=== PATIENT | female | born 1935 | race Caucasian/White ===

== ENCOUNTER 2017-12-11 11:15 | Inpatient (IN) | payer MEDICARE ==
--- NOTE | 2017-12-11 12:08 | CT Preliminary Report ---
Exam: CT HEAD W/O STROKE PROTOCOL IMPRESSION: 1. Focal hypodensity within the right posterior frontal subcortical white matter. This could be due t o acute edema from early infarct or asymmetric changes of chronic microangiopathic disease. The overl moises cortical dye-white differentiation appears to be preserved. 2. No intracranial hemorrhage or mass effect. [facility] The call report notification system was initiated by Dr. David Morris at 11:57 hrs on 12/11/17. The above findings were discussed with Gilles Leung by Dr. David Morris at 12:07 hrs on 12/11/17. SITE ID: [id number]
--- NOTE | 2017-12-11 12:09 | CT Report ---
EXAM: CT HEAD EXAM DATE: 12/11/2017 11:48 AM. CLINICAL HISTORY: Slurred speech and confused. COMPARISON: None. TECHNIQUE: Multiaxial CT images were obtained from the foramen magnum to the vertex. Reformats: Coron al. IV contrast: None. In accordance with CT protocol optimization, one or more of the following dose reduction techniques w ere utilized for this exam: automated exposure control, adjustment of mA and/or KV based on patient s ize, or use of iterative reconstructive technique. FINDINGS: Parenchyma: No intraparenchymal hemorrhage. No evidence of mass effect or midline shift. There is foc al hypodensity in the right posterior frontal subcortical white matter (series 3 image 20, and series 6 image 17). Bean-white differentiation is distinct. Diffuse chronic microangiopathic white matter c hanges are evident. Extraaxial Spaces: Normal for age. No subdural or epidural collections identified. Ventricles: The ventricles and cortical sulci are enlarged, consistent with age-related tissue loss. Sinuses and orbits: Imaged paranasal sinuses, orbits, and mastoids show no significant abnormality. Bones: No evidence of fracture or calvarial defect. Hyperostosis frontalis is present. Other: None. IMPRESSION: 1. Focal hypodensity within the right posterior frontal subcortical white matter. This could be due t o acute edema from early infarct or asymmetric changes of chronic microangiopathic disease. The overl moises cortical bean-white differentiation appears to be preserved. 2. No intracranial hemorrhage or mass effect. RAD[facility] The call report notification system was initiated by Dr. David Morris at 11:57 hrs on 12/11/17. The above findings were discussed with Gilles Leung by Dr. David Morris at 12:07 hrs on 12/11/17. Referring Provider Line: [phone] SITE ID: [id number]
[2017-12-11] MEDS ORDERED: ASPIRIN CHEW 81 MG TABLET PO STA (12:25)
[2017-12-11] MEDS ORDERED: ENOXAPARIN 40 MG/0.4 ML SYRINGE SUBQ STA (12:26)
[2017-12-11 12:47] LABS: BASOPHILS % (AUTO) 0.7 %; EOSINOPHILS # (AUTO) 0.1 10^3/uL (0.0-0.7); EOSINOPHILS % (AUTO) 1.3 %; HGB - HEMOGLOBIN 11.8 g/dL (12.0-16.0); LYMPHOCYTES # (AUTO) 1.5 10^3/uL (1.5-3.5); LYMPHOCYTES % (AUTO) 23.7 %; MEAN CORPUSCULAR HEMOGLOBIN 32.4 pg (27.0-31.0); MEAN CORPUSCULAR HGB CONC 33.4 g/dL (32.0-36.0); MEAN CORPUSCULAR VOLUME 97.3 fL (81.0-99.0); MEAN PLATELET VOLUME 7.8 fL (7.9-10.8); MONOCYTES # (AUTO) 0.5 10^3/uL (0.0-1.0); MONOCYTES % (AUTO) 7.7 %; NEUTROPHILS # (AUTO) 4.3 10^3/uL (1.5-6.6); NEUTROPHILS % (AUTO) 66.6 %; PLT - PLATELET COUNT 210 10^3/uL (130-450); RED BLOOD COUNT 3.65 10^6/uL (4.20-5.40); WHITE BLOOD COUNT 6.5 x10^3/uL (4.8-10.8)
[2017-12-11 13:00] LABS: ALBUMIN 3.8 g/dL (3.2-5.5); ALBUMIN/GLOBULIN RATIO 1.1 (1.0-2.2); BILIRUBIN,TOTAL 0.8 mg/dL (0.2-1.0); CALCIUM 9.1 mg/dL (8.5-10.3); CREATININE 1.3 mg/dL (0.4-1.0); TOTAL PROTEIN 7.3 g/dL (6.7-8.2)
--- NOTE | 2017-12-11 13:07 | XRAY Preliminary Report ---
Exam: XR CHEST 1 VIEW X-RAY IMPRESSION: 1. Mild edema or pneumonitis. 2. Elevated right hemidiaphragm, chronicity uncertain. 3. Poststernotomy. The superior cerclage wire is noted to be fractured. [facility] SITE ID: [id number]
--- NOTE | 2017-12-11 13:29 | ED Physician Documentation ---
PD HPI FOCAL NEURO - Stated complaint Stated Complaint: SLURRED SPEACH/DIFF WALKING - Chief complaint Chief Complaint: Neuro - History obtained from History obtained from: Patient - History of Present Illness Timing - onset: Today (about 8 am) Timing - duration: Hours (3) Timing - details: Abrupt onset, Now resolved Severity of deficit: Mild Weakness: Other (trouble speaking and seemed confused/aimless, and trouble walking.) Associated symptoms: No: Headache, Nausea / vomiting, Neck pain, Back pain Contributing factors: negative: Anticoagulated Baseline status: positive: A&OX3, ambulatory, indep Similar symptoms before: Has not had sx before Recently seen: Not recently seen Review of Systems Constitutional: denies: Fever, Myalgias Nose: denies: Rhinorrhea / runny nose, Congestion Throat: denies: Sore throat Cardiac: denies: Chest pain / pressure, Palpitations Respiratory: denies: Dyspnea, Cough GI: denies: Abdominal Pain, Nausea, Vomiting Skin: denies: Rash, Lesions, Abrasion (s) Musculoskeletal: denies: Neck pain, Back pain Neurologic: reports: Difficulty speaking, Confused. denies: Generalized weakness, Focal weakness, Numbness, Near syncope, Headache, Head injury, LOC Immunocompromised: denies: Immunocompromised PD PAST MEDICAL HISTORY - Past Medical History Past Medical History: Yes Cardiovascular: High cholesterol, Coronary artery disease, Valve disorder Respiratory: None Endocrine/Autoimmune: Type 2 diabetes : None HEENT: None Psych: None Musculoskeletal: None Derm: None - Past Surgical History Past Surgical History: Yes Cardiovascular: Valve replacement HEENT: Cataracts - Present Medications Home Medications: Ambulatory Orders Medication Instructions Recorded Confirmed Atorvastatin Calcium 10 mg PO 0800 02/16/17 12/11/17 Furosemide 20 mg PO 0800,1500 02/16/17 12/11/17 Glipizide [Glipizide Xl] 10 mg PO 0800 02/16/17 12/11/17 Lisinopril 40 mg PO 0800 02/16/17 12/11/17 Amlodipine Besylate 5 [place] [address]12/11/17 12/11/17 Apixaban [Eliquis] 2.5 mg PO 0800,199912/11/17 12/11/17 Metformin HCl 1,000 mg PO 0812/11/17 12/11/17 Metoprolol Succinate 100 mg PO 0800 12/11/17 12/11/17 - Allergies Allergies/Adverse Reactions: Allergies Allergy/AdvReac Type Severity Reaction Status Date / Time No Known Drug Allergies Allergy Verified 12/11/17 11:22 - Social History Does the pt smoke?: No Smoking Status: Never smoker Does the pt have substance abuse?: No PD ED PE NORMAL - Vitals Vital signs reviewed: Yes - General General: Alert and oriented X 3, No acute distress, Well developed/nourished - HEENT HEENT: Moist mucous membranes, Pharynx benign - Neck Neck: Supple, no meningeal sign, No adenopathy - Cardiac Cardiac: No: RRR (good rate but irregular rhythm slightly) - Respiratory Respiratory: No respiratory distress, Clear bilaterally - Abdomen Abdomen: Normal bowel sounds, Soft, Non tender - Back Back: No CVA TTP - Derm Derm: Normal color NIHSS - Level of Consciousness Level of consciousness: (0) Alert, Keenly responsive LOC Questions: (0) Answers both Q's correct LOC Commands: (0) Performs both correctly - Gaze Best Gaze: (0) Normal - Visual Visual: (0) No loss - Facial Palsy Facial Palsy: (0) Normal, symmetrical movement - Motor Arms (both separate) Motor Arm (right): (0) No drift Motor Arm (left): (0) No drift - Motor Legs (both separate) Motor Leg (right): (0) No drift Motor Leg (left): (0) No drift - Limb Ataxia Limb Ataxia: (0) Absent - Sensory Sensory: (0) Normal - Best Language Best Language: (0) No aphasia - Dysarthria Dysarthria: (0) Normal - Extinction and Inattention (formally neg Extinction and inattention: (0) No abnormality - Total Score/Results Total Score/Result: 0 Results - Vitals Vitals: Vital Signs - 24 hr 12/11/17 11:22 Temperature 36.9 C Heart Rate 64 Respiratory 14 Rate Blood Pressure 172/64 H O2 Saturation 98 Oxygen O2 Source Room air - Labs Labs: Laboratory Tests 12/11/17 12/11/17 12/11/17 12:40 12:40 12:40 WBC 6.5 RBC 3.65 L Hgb 11.8 L Hct 35.5 L MCV 97.3 MCH 32.4 H MCHC 33.4 RDW 15.0 Plt Count 210 MPV 7.8 L Neut # (Auto) 4.3 Lymph # (Auto) 1.5 [place] # (Auto) 0.5 Eos # (Auto) 0.1 Baso # (Auto) 0.0 Absolute Nucleated RBC 0.00 Nucleated RBC % 0.0 Sodium 136 Potassium 3.0 L Chloride 103 Carbon Dioxide 24 Anion Gap 9.0 BUN 19 Creatinine 1.3 H Estimated GFR (MDRD) 39 L Glucose 96 Calcium 9.1 Total Bilirubin 0.8 AST 41 ALT 37 Alkaline Phosphatase 70 Troponin I 0.05 Total Protein 7.3 Albumin 3.8 Globulin 3.5 Albumin/Globulin Ratio 1.1 Lipase 30 PD MEDICAL DECISION MAKING - ED course Complexity details: reviewed results, re-evaluated patient, considered differential, d/w patient, d/w senior erp consultant (Neurology at [facility] - no higher interventions. Suggests typical MRI, Carotid studies, ECHO; anticoagulation due to atrial fib (CHADs 2 score). ) - Sepsis Event Vital Signs: Vital Signs - 24 hr 12/11/17 11:22 Temperature 36.9 C Heart Rate 64 Respiratory 14 Rate Blood Pressure 172/64 H O2 Saturation 98 Oxygen O2 Source Room air Departure - Departure Disposition: 66 [facility] DC/Xfer Clinical Impression: Slurred speech TIA (transient ischemic attack) Qualifiers: Transient cerebral ischemia type: unspecified Qualified Code(s): G45.9 - Transient cerebral ischemic attack, unspecified Condition: Stable Record reviewed to determine appropriate education?: Yes Discharge Date/Time: 12/11/17 14:12
[2017-12-11] MEDS ORDERED: SODIUM CHLORIDE FLUSH 0.9% 10 ML SYRINGE IVP PRN (13:37)
--- NOTE | 2017-12-11 13:37 | XRAY Report ---
EXAM: CHEST RADIOGRAPHY EXAM DATE: 12/11/2017 12:53 PM. CLINICAL HISTORY: Weakness. COMPARISON: None. TECHNIQUE: 1 view. FINDINGS: Lungs/Pleura: The interstitial markings are increased consistent with mild edema or pneumonitis. Basi lar atelectasis is likely. No ludmila consolidative process, pneumothorax or pleural effusion. The righ t hemidiaphragm is elevated, chronicity uncertain. Mediastinum: The heart is prominent in size, accentuated by the AP projection. Post sternotomy change is noted. The superior cerclage wire is fractured. IMPRESSION: 1. Mild edema or pneumonitis. 2. Elevated right hemidiaphragm, chronicity uncertain. 3. Post sternotomy. The superior cerclage wire is noted to be fractured. [facility] Referring Provider Line: [phone] SITE ID: [id number]
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
[2017-12-11] MEDS: ATORVASTATIN 40 MG TABLET PO SCH (16:18)
[2017-12-11] MEDS ORDERED: HALOPERIDOL 1 MG TABLET PO PRN (18:43)
[2017-12-11] MEDS ORDERED: QUEtiapine 25 MG TABLET PO SCH (19:00)
[2017-12-11] MEDS: SODIUM CHLORIDE FLUSH 0.9% 10 ML SYRINGE IVP SCH (19:19)
[2017-12-11] MEDS: QUEtiapine 25 MG TABLET PO SCH ×2 (19:22→20:36)
[2017-12-11] MEDS: ACETAMINOPHEN 325 MG TABLET PO PRN (19:22)
[2017-12-11] MEDS: ASPIRIN EC 325 MG TABLET PO SCH (19:22)
[2017-12-11] MEDS: APIXABAN 2.5 MG TABLET PO SCH (19:22)
[2017-12-12] MEDS: SODIUM CHLORIDE FLUSH 0.9% 10 ML SYRINGE IVP SCH ×3 (00:43→16:25)
[2017-12-12] MEDS: ACETAMINOPHEN 325 MG TABLET PO PRN ×2 (02:56→03:36)
[2017-12-12] MEDS ORDERED: SODIUM CHLORIDE 0.9% 1,000 ML IV ONE (03:40)
[2017-12-12] MEDS: POTASSIUM CHLOR 10 MEQ/100 ML 10 MEQ/100 ML BAG IV SCH ×4 (03:43→06:56)
[2017-12-12] MEDS ORDERED: SODIUM CHLORIDE 0.9% 1,000 ML IV SCH (04:00)
[2017-12-12 05:56] LABS: BASOPHILS % (AUTO) 0.6 %; EOSINOPHILS # (AUTO) 0.1 10^3/uL (0.0-0.7); EOSINOPHILS % (AUTO) 1.2 %; HGB - HEMOGLOBIN 10.9 g/dL (12.0-16.0); LYMPHOCYTES # (AUTO) 1.2 10^3/uL (1.5-3.5); LYMPHOCYTES % (AUTO) 25.2 %; MEAN CORPUSCULAR HEMOGLOBIN 32.7 pg (27.0-31.0); MEAN CORPUSCULAR HGB CONC 33.6 g/dL (32.0-36.0); MEAN CORPUSCULAR VOLUME 97.2 fL (81.0-99.0); MEAN PLATELET VOLUME 8.3 fL (7.9-10.8); MONOCYTES # (AUTO) 0.5 10^3/uL (0.0-1.0); MONOCYTES % (AUTO) 9.7 %; NEUTROPHILS # (AUTO) 3.1 10^3/uL (1.5-6.6); NEUTROPHILS % (AUTO) 63.3 %; PLT - PLATELET COUNT 182 10^3/uL (130-450); RED BLOOD COUNT 3.32 10^6/uL (4.20-5.40); RED CELL DISTRIBUTION WIDTH 14.8 % (12.0-15.0); WHITE BLOOD COUNT 4.9 x10^3/uL (4.8-10.8)
[2017-12-12 06:11] LABS: HB2 TOTAL 11.8 g/dL; HEMOGLOBIN A1C 0.58 g/dL; HEMOGLOBIN A1C % 6.6 % (4.6-6.2)
[2017-12-12 06:16] LABS: ALBUMIN 3.2 g/dL (3.2-5.5); ALKALINE PHOSPHATASE 61 IU/L (42-121); ALT ALANINE AMINOTRANSFERASE 30 IU/L (10-60); AST ASPARTATE AMINOTRANSFERASE 31 IU/L (10-42); BILIRUBIN,TOTAL 0.6 mg/dL (0.2-1.0); BUN - BLOOD UREA NITROGEN 20 mg/dL (6-20); CALCIUM 8.6 mg/dL (8.5-10.3); CARBON DIOXIDE - CO2 23 mmol/L (21-32); CHLORIDE 105 mmol/L (101-111); CHOL/HDL RATIO 2.3 (<4.4); CHOLESTEROL 96 mg/dL; CREATININE 1.1 mg/dL (0.4-1.0); GFR - MDRD 48 (>89); GLUCOSE 48 mg/dL (70-100); HDL CHOLESTEROL 41 mg/dL; LDL CHOLESTEROL,CALCULATED 40 mg/dL; SODIUM 138 mmol/L (135-145); TOTAL PROTEIN 6.3 g/dL (6.7-8.2); VLDL CHOLESTEROL 15 mg/dL
[2017-12-12] MEDS: ASPIRIN EC 325 MG TABLET PO SCH (09:00)
[2017-12-12] MEDS: ATORVASTATIN 40 MG TABLET PO SCH (09:00)
[2017-12-12] MEDS: POLYETHYLENE GLYCOL 3350 17 GM PACKET PO SCH (09:00)
[2017-12-12] MEDS: APIXABAN 2.5 MG TABLET PO SCH ×2 (09:00→20:12)
--- NOTE | 2017-12-12 09:26 | PROVIDER PROGRESS NOTE ---
Subjective - Prog Note Date Prog Note Date: 12/12/17 Prog Note Time: 09:26 - Subjective Pt reports feeling: No change Subjective: Yandy complains about being in the hospital and feels that she "has had enough testing". She denies SOB, chest pain, nausea, vomiting or a new cough. She has evidence of sundowning per nursing reports. Current Medications - Current Medications Current Medications: Active Medications Acetaminophen (Tylenol) 650 mg PO Q4HR PRN PRN Reason: Pain or Fever > 38C (100.4F) Last Admin: 12/12/17 03:36 Dose: 650 mg Apixaban (Eliquis) 2.5 mg PO 0800,1999 [facility] Last Admin: 12/12/17 20:12 Dose: 2.5 mg Aspirin (Ecotrin) 325 mg PO DAILY [facility] Last Admin: 12/12/17 09:00 Dose: 325 mg Atorvastatin Calcium (Lipitor) 80 mg PO DAILY [facility] Last Admin: 12/12/17 09:00 Dose: 80 mg Haloperidol (Haldol) 3 mg PO Q2H PRN PRN Reason: Agitation Last Admin: 12/12/17 16:27 Dose: 3 mg Sodium Chloride (Normal Saline 0.9%) 1,000 mls @ 0 mls/hr IV .Q0M [facility] PRN Reason: TKO Polyethylene Glycol (Miralax) 17 gm PO DAILY [facility] Last Admin: 12/12/17 09:00 Dose: 17 gm Quetiapine Fumarate (Seroquel) 50 mg PO QPM [facility] Last Admin: 12/12/17 20:12 Dose: 50 mg Sodium Chloride (Normal Saline Flush 0.9%) 10 ml IVP PRN PRN PRN Reason: NEEDED PER PROVIDER ORDERS Last Admin: 12/12/17 03:43 Dose: 10 ml Sodium Chloride (Normal Saline Flush 0.9%) 10 ml IVP 0100,0900,1700 [facility] Last Admin: 12/13/17 00:18 Dose: 10 ml Atorvastatin Calcium 10 mg PO 0800 02/16/17 Furosemide 20 mg PO 0800,1500 02/16/17 Glipizide [Glipizide Xl] 10 mg PO 0800 02/16/17 Lisinopril 40 mg PO 0800 02/16/17 Amlodipine Besylate 5 mg PO 0800 12/11/17 Apixaban [Eliquis] 2.5 mg PO 08,199912/11/17 Metformin HCl 1,000 [place] 79912/11/17 Metoprolol Succinate [place] 7[address]12/11/17 Objective - Vital Signs/Intake & Output Reviewed Vital Signs: Yes Vital Signs: Vital Signs x48h Temp Pulse Resp BP Pulse Ox 12/12/17 07:57 36.3 C L 76 18 149/72 H 95 12/12/17 04:05 36.2 C L 82 16 127/55 L 94 Intake & Output: Intake & Output 12/09/17 12/10/17 12/11/17 12/12/17 23:59 23:59 23:59 23:59 Intake Total 320 780 Balance 320 780 - Objective General Appearance: positive: No acute distress, Alert Eyes: OU Conjunctivae pale ENT: positive: ENT inspection nml, Pharynx nml, No signs of dehydration Neck: positive: Nml inspection, Thyroid nml, No JVD, Trachea midline Respiratory: positive: Chest non-tender, No respiratory distress, Other ( diminished, bilaterally.) Cardiovascular: positive: No gallop, Irregularly irregular, Systolic murmur, Decreased pulse(s) Peripheral Pulses: 0 Radial (R) (Post CABG), 0 Radial (L) (post CABG), 1+ Dorsalis pedis (R), 1+ Dorsalis pedis (L) Abdomen: positive: Non-tender, Nml bowel sounds, Other (rounded, soft) Rectal: positive: Non-tender Back: positive: Nml inspection Skin: positive: No rash, Warm, Dry, Pallor Extremities: positive: Non-tender, Full ROM, Pedal edema (chronic, BLE.) Neurologic/Psychiatric: positive: Disoriented to time, Weakness, Sensory loss, Depressed mood/affect - Lab Results Fish Bones: 12/13/17 05:35 12/13/17 05:35 Other Labs: Lab Results x24hrs 12/12/17 12/12/17 12/12/17 Range/Units 07:02 06:50 06:28 WBC (4.8-10.8) x10^3/uL RBC (4.20-5.40) 10^6/uL Hgb (12.0-16.0) g/dL Hct (37.0-47.0) % MCV (81.0-99.0) fL MCH (27.0-31.0) pg MCHC (32.0-36.0) g/dL RDW (12.0-15.0) % Plt Count (130-450) 10^3/uL MPV (7.9-10.8) fL Neut # (Auto) (1.5-6.6) 10^3/uL Lymph # (Auto) (1.5-3.5) 10^3/uL Crowley # (Auto) (0.0-1.0) 10^3/uL Eos # (Auto) (0.0-0.7) 10^3/uL Baso # (Auto) (0.0-0.1) 10^3/uL Absolute Nucleated RBC x10^3/uL Nucleated RBC % /100WBC Sodium (135-145) mmol/L Potassium (3.5-5.0) mmol/L Chloride (101-111) mmol/L Carbon Dioxide (21-32) mmol/L Anion Gap (6-13) BUN (6-20) mg/dL Creatinine (0.4-1.0) mg/dL Estimated GFR (MDRD) (>89) Glucose (70-100) mg/dL POC Whole Bld Glucose 80 69 L 44 L* (70 - 100) mg/dL Glycated Hemoglobin (4.6-6.2) % Estim Average Glucose (70-100) Calcium (8.5-10.3) mg/dL Total Bilirubin (0.2-1.0) mg/dL AST (10-42) IU/L ALT (10-60) IU/L Alkaline Phosphatase (42-121) IU/L Troponin I (<0.49) ng/mL Total Protein (6.7-8.2) g/dL Albumin (3.2-5.5) g/dL Globulin (2.1-4.2) g/dL Albumin/Globulin Ratio (1.0-2.2) Triglycerides ( - 149) mg/dL Cholesterol ( - 199) mg/dL LDL Cholesterol, Calc ( - 129) mg/dL VLDL Cholesterol mg/dL HDL Cholesterol (60 - ) mg/dL LDL/HDL Ratio (<4.4) Cholesterol/HDL Ratio (<4.4) TSH (0.34-5.60) uIU/mL 12/12/17 12/12/17 12/12/17 Range/Units 06:25 05:31 05:31 WBC (4.8-10.8) x10^3/uL RBC (4.20-5.40) 10^6/uL Hgb (12.0-16.0) g/dL Hct (37.0-47.0) % MCV (81.0-99.0) fL MCH (27.0-31.0) pg MCHC (32.0-36.0) g/dL RDW (12.0-15.0) % Plt Count (130-450) 10^3/uL MPV (7.9-10.8) fL Neut # (Auto) (1.5-6.6) 10^3/uL Lymph # (Auto) (1.5-3.5) 10^3/uL Crowley # (Auto) (0.0-1.0) 10^3/uL Eos # (Auto) (0.0-0.7) 10^3/uL Baso # (Auto) (0.0-0.1) 10^3/uL Absolute Nucleated RBC x10^3/uL Nucleated RBC % /100WBC Sodium (135-145) mmol/L Potassium (3.5-5.0) mmol/L Chloride (101-111) mmol/L Carbon Dioxide (21-32) mmol/L Anion Gap (6-13) BUN (6-20) mg/dL Creatinine (0.4-1.0) mg/dL Estimated GFR (MDRD) (>89) Glucose (70-100) mg/dL POC Whole Bld Glucose 40 L* (70 - 100) mg/dL Glycated Hemoglobin (4.6-6.2) % Estim Average Glucose (70-100) Calcium (8.5-10.3) mg/dL Total Bilirubin (0.2-1.0) mg/dL AST (10-42) IU/L ALT (10-60) IU/L Alkaline Phosphatase (42-121) IU/L Troponin I 0.04 (<0.49) ng/mL Total Protein (6.7-8.2) g/dL Albumin (3.2-5.5) g/dL Globulin (2.1-4.2) g/dL Albumin/Globulin Ratio (1.0-2.2) Triglycerides ( - 149) mg/dL Cholesterol ( - 199) mg/dL LDL Cholesterol, Calc ( - 129) mg/dL VLDL Cholesterol mg/dL HDL Cholesterol (60 - ) mg/dL LDL/HDL Ratio (<4.4) Cholesterol/HDL Ratio (<4.4) TSH 0.41 (0.34-5.60) uIU/mL 12/12/17 12/12/17 12/12/17 Range/Units 05:31 05:31 05:31 WBC 4.9 (4.8-10.8) x10^3/uL RBC 3.32 L (4.20-5.40) 10^6/uL Hgb 10.9 L (12.0-16.0) g/dL Hct 32.3 L (37.0-47.0) % MCV 97.2 (81.0-99.0) fL MCH 32.7 H (27.0-31.0) pg MCHC 33.6 (32.0-36.0) g/dL RDW 14.8 (12.0-15.0) % Plt Count 182 (130-450) 10^3/uL MPV 8.3 (7.9-10.8) fL Neut # (Auto) 3.1 (1.5-6.6) 10^3/uL Lymph # (Auto) 1.2 L (1.5-3.5) 10^3/uL Crowley # (Auto) 0.5 (0.0-1.0) 10^3/uL Eos # (Auto) 0.1 (0.0-0.7) 10^3/uL Baso # (Auto) 0.0 (0.0-0.1) 10^3/uL Absolute Nucleated RBC 0.00 x10^3/uL Nucleated RBC % 0.0 /100WBC Sodium 138 (135-145) mmol/L Potassium 3.4 L (3.5-5.0) mmol/L Chloride 105 (101-111) mmol/L Carbon Dioxide 23 (21-32) mmol/L Anion Gap 10.0 (6-13) BUN 20 (6-20) mg/dL Creatinine 1.1 H (0.4-1.0) mg/dL Estimated GFR (MDRD) 48 L (>89) Glucose 48 L* (70-100) mg/dL POC Whole Bld Glucose (70 - 100) mg/dL Glycated Hemoglobin 6.6 H (4.6-6.2) % Estim Average Glucose 143 H (70-100) Calcium 8.6 (8.5-10.3) mg/dL Total Bilirubin 0.6 (0.2-1.0) mg/dL AST 31 (10-42) IU/L ALT 30 (10-60) IU/L Alkaline Phosphatase 61 (42-121) IU/L Troponin I (<0.49) ng/mL Total Protein 6.3 L (6.7-8.2) g/dL Albumin 3.2 (3.2-5.5) g/dL Globulin 3.1 (2.1-4.2) g/dL Albumin/Globulin Ratio 1.0 (1.0-2.2) Triglycerides 75 ( - 149) mg/dL Cholesterol 96 ( - 199) mg/dL LDL Cholesterol, Calc 40 ( - 129) mg/dL VLDL Cholesterol 15 mg/dL HDL Cholesterol 41 L (60 - ) mg/dL LDL/HDL Ratio 1.0 (<4.4) Cholesterol/HDL Ratio 2.3 (<4.4) TSH (0.34-5.60) uIU/mL ABX Reporting Has patient been on IV antibiotics over the past 48 hours?: No Assessment/Plan - Problem List (1) Slurred speech Impression: The patient demonstrates slurred speech and inappropriate responses to questions. The patient has advanced baseline dementia. Her acute change in mental status has exacerbated the slurred speech. This is slowly improving and the patient can some what hold a conversation, but prefers yes and no questions. Plan: Continue to monitor and CVA work up. (2) TIA (transient ischemic attack) Impression: The patient's symptoms have improved since arriving in the ED, but now seem to come and go. Head CT results indicate no acute bleeding, but MRI report from today states that there are probable solitary micro-hemorrhage in the right temporal parietal brain. In 2011, just after the patient underwent a 3-vessel CABG and valve repair, she suffered a lacunar CVA which left her with some left sided weakness. Plan: PT/OT evaluation to aid with placement. Qualifiers: Transient cerebral ischemia type: unspecified Qualified Code(s): G45.9 - Transient cerebral ischemic attack, unspecified (3) Atrial fibrillation Impression: The patient has a history of this and is prescribed Eliquis BID at home. She is rate controlled with metoprolol. The patient has been steadily declining and she was likely not compliant with her medications due to her declining cognitive function. Plan: Continue Eliquis and resume beta lottie. Qualifiers: Atrial fibrillation type: chronic Qualified Code(s): I48.2 - Chronic atrial fibrillation (4) Dementia, multi-infarct Impression: The patient has baseline dementia from multi-infarct as per chart review dating back to 12/01/2011 but has been compensating for this disorder to her friends by "acting as if she is a private person". Seroquel and Haldol PO PRN have been added for night time agitation. Plan: Continue CVA work up and monitor for sun downing. Qualifiers: Dementia behavioral disturbance: with behavioral disturbance Qualified Code (s): F01.51 - Vascular dementia with behavioral disturbance (5) Lacunar stroke Impression: In a chart review of records obtained from [place], in 2011 the patient suffered a multiple lacunar CVA which caused left sided weakness and dementia. Plan: Continue work up for this current change in mental status.
--- NOTE | 2017-12-12 12:28 | MRI Preliminary Report ---
Exam: MRI BRAIN W/O IMPRESSION: 1. Multiple foci of patchy and confluent white matter diffusion hyperintensity in the right cerebral hemisphere consistent with acute to subacute small vessel ischemic infarcts. 2. Extensive findings above and below the tentorium of chronic small vessel ischemic disease. 3. No acute hemorrhage. Probable solitary chronic microhemorrhage in the right temporal parietal brai n. [facility] SITE ID: [id number]
--- NOTE | 2017-12-12 12:58 | MRI Report ---
EXAM: MRI BRAIN WITHOUT CONTRAST EXAM DATE: 12/12/2017 12:00 PM. CLINICAL HISTORY: TIA. Slurred speech. COMPARISON: No prior MRI. TECHNIQUE: Multiplanar, multisequence T1-weighted and fluid-sensitive MR sequences of the brain were performed. Sequences optimized for routine evaluation. Other: None. IV Contrast: None. FINDINGS: Brain Volume: Mild to moderate diffuse atrophy. Parenchyma/Dura: There is a region of incompletely confluent patchy restricted diffusion in the right cerebral deep white matter in the region of the centrum semiovale ovale and extending inferiorly to near the top of the basal ganglia. This measures up to 6 cm AP and 2 cm transverse. There is another smaller region of signal abnormality in the white matter lateral to the atrium of th e right lateral ventricle. This measures up to 2.5 cm AP and 0.4 cm in width. Additionally there are findings of severe chronic bilateral cerebral white matter disease with extens bolivar patchy and confluent T2 hyperintensity involving the white matter of both cerebral hemispheres as well as both external capsules. Multiple small old ischemic infarcts of the cerebellar hemispheres. Multiple old lacunar like infarct s of the brainstem. No midline shift or abnormal subdural fluid collection. No evidence for acute hemorrhage. Probable ch ronic microhemorrhage in the right lateral temporal parietal region. Ventricles/Cisterns: Mild to moderate ventriculomegaly, more likely from atrophy than hydrocephalus. Orbits: Prior bilateral lens extractions. Sella Turcica: No space-occupying mass in the region of the pituitary fossa or suprasellar cistern. IAC: No evidence for space-occupying mass or significant asymmetry but evaluation is inherently limit ed without contrast. Vasculature: The major arterial skull base flow voids are present. Sinuses: No acute appearing sinus or mastoid disease. Bones: No focal pathologic appearing marrow signal changes. Other: None. IMPRESSION: 1. Multiple foci of patchy and confluent white matter diffusion hyperintensity in the right cerebral hemisphere consistent with acute to subacute small vessel ischemic infarcts. 2. Extensive findings above and below the tentorium of chronic small vessel ischemic disease. 3. No acute hemorrhage. Probable solitary microhemorrhage in the right temporal parietal brain. [facility] Referring Provider Line: [phone] SITE ID: [id number]
[2017-12-12] MEDS: QUEtiapine 25 MG TABLET PO SCH (20:12)
[2017-12-13] MEDS: SODIUM CHLORIDE FLUSH 0.9% 10 ML SYRINGE IVP SCH ×2 (00:18→08:31)
[2017-12-13 06:12] LABS: BASOPHILS % (AUTO) 0.6 %; EOSINOPHILS # (AUTO) 0.2 10^3/uL (0.0-0.7); EOSINOPHILS % (AUTO) 3.2 %; HGB - HEMOGLOBIN 10.8 g/dL (12.0-16.0); MEAN CORPUSCULAR HEMOGLOBIN 33.3 pg (27.0-31.0); MEAN CORPUSCULAR HGB CONC 33.6 g/dL (32.0-36.0); MEAN CORPUSCULAR VOLUME 99.1 fL (81.0-99.0); MEAN PLATELET VOLUME 8.3 fL (7.9-10.8); MONOCYTES # (AUTO) 0.7 10^3/uL (0.0-1.0); MONOCYTES % (AUTO) 10.7 %; NEUTROPHILS # (AUTO) 3.7 10^3/uL (1.5-6.6); NEUTROPHILS % (AUTO) 55.5 %; PLT - PLATELET COUNT 175 10^3/uL (130-450); RED BLOOD COUNT 3.24 10^6/uL (4.20-5.40); WHITE BLOOD COUNT 6.6 x10^3/uL (4.8-10.8)
[2017-12-13 06:21] LABS: BILIRUBIN,TOTAL 0.6 mg/dL (0.2-1.0); CALCIUM 8.8 mg/dL (8.5-10.3); TOTAL PROTEIN 6.1 g/dL (6.7-8.2)
[2017-12-13] MEDS: ASPIRIN EC 325 MG TABLET PO SCH (08:29)
[2017-12-13] MEDS: ATORVASTATIN 40 MG TABLET PO SCH (08:29)
[2017-12-13] MEDS: APIXABAN 2.5 MG TABLET PO SCH (08:31)
[2017-12-13] MEDS: POLYETHYLENE GLYCOL 3350 17 GM PACKET PO SCH (08:31)
--- NOTE | 2017-12-13 11:27 | Discharge Plan ---
"Discharge Plan for SNF / [facility] - DC Plan and Transition Orders Disposition: 03 SNF DC/Xfer Condition: Good SNF Transition Orders: Admit to: [facility] under the care of Any Bailey (PCP). Discharge Diagnosis: Multiple lacunar infarcts CVA, DM type 0-bvw-[id number] dependent, HTN, left sided weakness from CVA in 2011, hx of 3-vessel CABG with aortic valve replacement, ataxia, advanced dementia. Weight on admission and monthly. Call PCP immediately if weight increases by 10 pounds or if patient develops dyspnea, chest pain/tightness or edema. Treatments & Other Orders: Provide 24 hours supervision for patient safety, ensure proper medication administration, and fall precautions. Oxygen Orders: not needed during this hospital stay: May apply 1-2L per nasal cannula to keep oxygen saturation greater than 90%, PRN. Lab Tests or X-Rays Orders: Not indicated. Medications: PLEASE REFER TO THE DISCHARGE MEDICATION LIST. Insulin Orders? No Diagnosis: Diabetes; Initiate hypo and hyperglycemia protocols for BG <70 and BG >375. May check BG prn for signs/symptoms of dysglycemia. Allergies and Adverse Reactions: Allergies Allergy/AdvReac Type Severity Reaction Status Date / Time No Known Drug Allergies Allergy Verified 12/11/17 11:22 - Medications New Prescriptions: Aspirin EC [Ecotrin] 325 mg PO DAILY #30 tablet Atorvastatin [Lipitor] 40 mg PO DAILY #30 tablet Furosemide 20 mg PO 0800,1500 #60 tablet Lisinopril 20 mg PO DAILY #60 tablet Metformin HCl 500 mg PO 0800 #30 tablet Metoprolol Succinate 100 mg PO 0800 #30 tab.er.24h QUEtiapine [SEROquel] 50 mg PO QPM #60 tablet - Diet Texture: Regular Liquids: Thin May have monthly special meal: Yes - Therapies | Activity Therapy: Evaluation | Treat if indicated: PT, OT Rehabilitation Potential: Maximize functional status Activity: Activity as Tolerated Weight Bearing: Full Weight Assistance Devices: Walker"
[2017-12-13] MEDS: ACETAMINOPHEN 325 MG TABLET PO PRN (12:00)
[2017-12-13 16:20] VITALS: BP 160/76
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
== END 2017-12-13 17:25 | disposition home or self-care (01) | DRG 65 ==
LOC: ED 11:15 → MS2 13:37
PROVIDERS: ADMIT Nurse Practitioner; ATTEND Nurse Practitioner
DX: I63.50 Cerebral infarction due to unspecified occlusion or stenosis of unspecified cerebral artery (principal); G45.9 Transient cerebral ischemic attack, unspecified; I48.91 Unspecified atrial fibrillation; I42.1 Obstructive hypertrophic cardiomyopathy; I69.354 Hemiplegia and hemiparesis following cerebral infarction affecting left non-dominant side; E78.00 Pure hypercholesterolemia, unspecified; F01.51 Vascular dementia, unspecified severity, with behavioral disturbance; F05 Delirium due to known physiological condition; I69.311 Memory deficit following cerebral infarction; R47.81 Slurred speech; R47.1 Dysarthria and anarthria; R27.0 Ataxia, unspecified; E87.6 Hypokalemia; I48.2 Chronic atrial fibrillation; I27.20 Pulmonary hypertension, unspecified; I10 Essential (primary) hypertension; E11.9 Type 2 diabetes mellitus without complications; E78.5 Hyperlipidemia, unspecified; I25.10 Atherosclerotic heart disease of native coronary artery without angina pectoris; Z66 Do not resuscitate; Z95.1 Presence of aortocoronary bypass graft; Z79.01 Long term (current) use of anticoagulants; Z95.2 Presence of prosthetic heart valve; Z79.84 Long term (current) use of oral hypoglycemic drugs; Z79.899 Other long term (current) drug therapy; Z87.891 Personal history of nicotine dependence; Z95.5 Presence of coronary angioplasty implant and graft; Z91.14 Patient's other noncompliance with medication regimen
CPT/HCPCS: 36415; 70450; 70551; 71045; 80053; 80061; 83036; 83690; 83721; 84443; 84484; 85025; 93005; 93306; 96372; 99283; 99284

== ENCOUNTER 2019-11-26 15:20 | Outpatient (CLI) | payer MEDICARE | END 2019-11-26 15:21 | disposition EMS.NT | LOC: EMS 15:20 | PROVIDERS: ATTEND Surgery | DX: R46.89 Other symptoms and signs involving appearance and behavior (principal) ==

== ENCOUNTER 2019-12-15 12:55 | Outpatient (CLI) | payer MEDICARE | END 2019-12-15 12:56 | disposition critical access hospital (66) | LOC: EMS 12:55 | PROVIDERS: ATTEND Surgery | DX: S09.90XA Unspecified injury of head, initial encounter (principal); W19.XXXA Unspecified fall, initial encounter; Y92.099 Unspecified place in other non-institutional residence as the place of occurrence of the external cause ==

== ENCOUNTER 2019-12-15 13:13 | Emergency (ER) | payer MEDICARE ==
--- NOTE | 2019-12-15 13:24 | ED Physician Documentation ---
History of Present Illness - Stated complaint Stated Complaint: GLF - History obtained from History obtained from: Patient, EMS - History of Present Illness Timing: Today - Additonal information Additional information: 84-year-old female lives at [place], presents to the emergency department after a ground-level fall today. Struck her head and has bruising to the left forehead. Does have a history of dementia. No change in her mental status per EMS as per the facility. She is on a cervical collar. Not on a backboard. She did ambulate after the event. She is on warfarin. Nothing makes it better or worse Review of Systems Unable to obtain: Confused, Dementia PD PAST MEDICAL HISTORY - Past Medical History Past Medical History: Yes Cardiovascular: High cholesterol, Coronary artery disease, Atrial fibrillation, Valve disorder Respiratory: None, Other (tobacco use history.) Neuro: CVA Endocrine/Autoimmune: Type 2 diabetes GI: GERD : None HEENT: None Psych: None Musculoskeletal: None Derm: None - Past Surgical History Past Surgical History: Yes Cardiovascular: CABG, Coronary stent, Valve replacement, Cardiac catheterization, Vascular surgery HEENT: Cataracts - Present Medications Home Medications: Ambulatory Orders Medication Instructions Recorded Confirmed Donepezil HCl 10 mg PO QPM 11/26/19 11/27/19 Escitalopram Oxalate 20 mg PO DAILY 11/26/19 11/27/19 Pantoprazole Sodium 40 mg DAILY 11/26/19 11/26/19 QUEtiapine [SEROquel] 50 mg PO QPM 11/26/19 11/27/19 Warfarin Sodium 5 mg PO DAILY 11/26/19 11/27/19 Atorvastatin Calcium 20 mg PO QPM 11/27/19 11/27/19 Metoprolol Succinate 75 mg PO DAILY 11/27/19 11/27/19 buPROPion HCL [Bupropion HCl Sr] 150 mg PO Q12H 11/27/19 11/27/19 Potassium Chloride [Micro-K] 10 meq PO 0800 #15 capsule 11/28/19 Calcium Carbonate/Vitamin D3 1 each PO BID 12/15/19 12/15/19 [Calcium 500 mg-Vit D3 600 Unit] Ciprofloxacin [Cipro] 250 mg PO Q12H 12/15/19 12/15/19 Ferrous Gluconate 240 mg PO 12/15/19 Multivitamin [Multiple Vitamins] 1 each PO DAILY 12/15/19 12/15/19 clonazePAM [Clonazepam] 0.5 mg PO QPM PRN 12/15/19 12/15/19 - Allergies Allergies/Adverse Reactions: Allergies Allergy/AdvReac Type Severity Reaction Status Date / Time No Known Drug Allergies Allergy Verified 11/26/19 16:43 - Social History Does the pt smoke?: No Smoking Status: Light tobacco smoker Does the pt drink ETOH?: No Does the pt have substance abuse?: No - POLST Patient has POLST: Yes POLST Status: DNR PD ED PE NORMAL - Vitals Vital signs reviewed: Yes - General General: No acute distress, Other (Alert, oriented to person and place) - HEENT HEENT: PERRL, Moist mucous membranes, Pharynx benign, Other (Hematoma to the left forehead. No lacerations. No abrasions.) - Neck Neck: Supple, no meningeal sign, Other (No midline tenderness to palpation. No step-off or deformity) - Cardiac Cardiac: RRR, Strong equal pulses - Respiratory Respiratory: No respiratory distress, Clear bilaterally - Abdomen Abdomen: Soft, Non tender, Non distended - Back Back: No spinal TTP (No midline tenderness to palpation. No step-off or deformity) - Derm Derm: Warm and dry - Extremities Extremities: No deformity, No tenderness to palpate, Normal ROM s pain, No edema - Neuro Neuro: corn picker 2-12 intact, No motor deficit, No sensory deficit, Other (Alert, oriented to person and place) Eye Opening: Spontaneous Motor: Obeys Commands Verbal: Confused GCS Score: 14 - Psych Psych: Normal mood, Normal affect Results - Vitals Vitals: Vital Signs - 24 hr 12/15/19 13:15 Temperature 36.3 C L Heart Rate 62 Respiratory 18 Rate Blood Pressure 170/71 H O2 Saturation 98 Oxygen O2 Source Room air - Labs Labs: Laboratory Tests 12/15/19 12/15/19 12/15/19 13:37 13:37 13:37 WBC 6.6 RBC 3.70 L Hgb 12.2 Hct 36.8 L MCV 99.5 H MCH 33.0 H MCHC 33.2 RDW 13.3 Plt Count 155 MPV 10.8 Neut # (Auto) 4.8 Lymph # (Auto) 1.0 L [place] # (Auto) 0.6 Eos # (Auto) 0.2 Baso # (Auto) 0.0 Absolute Nucleated RBC 0.00 Nucleated RBC % 0.0 PT 15.1 H INR 1.3 H Sodium 142 Potassium 4.2 Chloride 108 Carbon Dioxide 24 Anion Gap 10.0 BUN 27 H Creatinine 1.4 H Estimated GFR (MDRD) 36 L Glucose 131 H Calcium 9.3 Total Bilirubin 1.0 AST 35 ALT 32 Alkaline Phosphatase 77 Total Protein 6.8 Albumin 3.8 Globulin 3.0 Albumin/Globulin Ratio 1.3 Lipase 41 - Rads (name of study) Head CT Radiology: Prelim report reviewed, EMP read contemporaneously, See rad report (No acute abnormality) Cervical spine CT Radiology: Prelim report reviewed, EMP read contemporaneously, See rad report (No acute abnormality) PD MEDICAL DECISION MAKING - ED course Complexity details: reviewed results, re-evaluated patient, considered differential, d/w patient ED course: No acute findings on head CT, cervical spine CT or laboratory testing. We will have her follow-up with her doctor for further care. Ambulating well. No evidence of hip fracture. This document was made in part using voice recognition software. While efforts are made to proofread this document, sound alike and grammatical errors may occur. Departure - Departure Disposition: 01 Home, Self Care Clinical Impression: Fall from ground level Head injury Qualifiers: Encounter type: initial encounter Qualified Code(s): S09.90XA - Unspecified injury of head, initial encounter Condition: Good Instructions: ED Head Injury Closed Follow-Up: Any Bailey MD [Primary Care Provider] - Within 1 week Comments: There are no acute findings on your laboratory testing or CAT scan of your head and neck today. Follow-up with your doctor for further care. Return if you worsen.
[2019-12-15 13:40] LABS: BASOPHILS % (AUTO) 0.5 %; EOSINOPHILS # (AUTO) 0.2 10^3/uL (0.0-0.7); EOSINOPHILS % (AUTO) 2.6 %; HGB - HEMOGLOBIN 12.2 g/dL (12.0-16.0); LYMPHOCYTES % (AUTO) 15.2 %; MEAN CORPUSCULAR HGB CONC 33.2 g/dL (32.0-36.0); MEAN CORPUSCULAR VOLUME 99.5 fL (81.0-99.0); MEAN PLATELET VOLUME 10.8 fL (7.9-10.8); MONOCYTES # (AUTO) 0.6 10^3/uL (0.0-1.0); MONOCYTES % (AUTO) 8.6 %; NEUTROPHILS # (AUTO) 4.8 10^3/uL (1.5-6.6); NEUTROPHILS % (AUTO) 72.6 %; PLT - PLATELET COUNT 155 10^3/uL (130-450); RED CELL DISTRIBUTION WIDTH 13.3 % (12.0-15.0); WHITE BLOOD COUNT 6.6 x10^3/uL (4.8-10.8)
[2019-12-15 13:46] LABS: INR 1.3 (0.8-1.2); PT - PROTHROMBIN TIME 15.1 secs (9.9-12.6)
[2019-12-15 13:54] LABS: ALBUMIN 3.8 g/dL (3.2-5.5); ALBUMIN/GLOBULIN RATIO 1.3 (1.0-2.2); CALCIUM 9.3 mg/dL (8.5-10.3); CREATININE 1.4 mg/dL (0.4-1.0); TOTAL PROTEIN 6.8 g/dL (6.7-8.2)
--- NOTE | 2019-12-15 14:22 | CT Report ---
PROCEDURE: HEAD WO INDICATIONS: fall, head injury TECHNIQUE: Noncontrast 4.5 mm thick angled axial sections acquired from the foramen magnum to the vertex. For r adiation dose reduction, the following was used: automated exposure control, adjustment of mA and/or kV according to patient size. COMPARISON: Prior head CT examinations 12/11/2017 and 11/26/2019. Correlation is also made with brain MRI 12/12/2017. Correlation is made with the accompanying cervical spine CT 12/15/2019. FINDINGS: Image quality: Excellent. CSF spaces: Basal cisterns are patent. No extra-axial fluid collections. Ventricles are normal in size and shape. Brain: No midline shift. Brain parenchymal volume loss is seen. Chronic small ischemic change can b e seen. No intracranial masses or hemorrhage. Bean-white matter interface is normal. Skull and face: There is a mild left forehead hematoma seen. No underlying calvarial fracture is see n. Calvarium and visualized facial bones are intact, without suspicious lesions. Sinuses: Visualized sinuses and mastoids are clear. IMPRESSION: No intracranial hemorrhage is seen. Mild left forehead hematoma. Unremarkable intracranial study for age, with note made of brain parenchymal volume loss and chronic small vessel ischemic change. Reviewed by: James Phillips MD on 12/15/2019 1:21 PM [facility] Approved by: James Phillips MD on 12/15/2019 1:21 PM AKDT Station ID: [id number]
--- NOTE | 2019-12-15 14:24 | CT Report ---
PROCEDURE: CERVICAL SPINE WO INDICATIONS: fall, neck pain TECHNIQUE: Noncontrast 3 mm thick sections acquired from the skull base to the T4 level. Sagittal and coronal r eformats were then constructed. For radiation dose reduction, the following was used: automated exp osure control, adjustment of mA and/or kV according to patient size. COMPARISON: Correlation is made with the accompanying brain CT 12/15/2019. FINDINGS: Image quality: Excellent. Bones: No fractures or dislocations. Visualized superior ribs are intact. Degenerative changes are seen, particularly involving the C1-C2 interface anteriorly. Sternotomy wires are seen. Soft tissues: Prevertebral soft tissues are normal in thickness. No paravertebral hematomas. No ap ical pneumothoraces. Atherosclerotic calcification can be seen, particularly involving the aortic ar ch and the carotid bifurcations. IMPRESSION: No acute fractures are seen. Degenerative changes are noted. Incidental note is made of: Sternotomy changes Atherosclerotic calcification Reviewed by: James Phillips MD on 12/15/2019 1:22 PM [facility]RI[facility] Approved by: James Phillips MD on 12/15/2019 1:22 PM AKDT Station ID: [id number]
[2019-12-15 15:35] VITALS: BP 148/67
== END 2019-12-15 16:20 | disposition home or self-care (01) ==
LOC: EDUNIT# → EDBD → ED 13:13
DX: S09.90XA Unspecified injury of head, initial encounter (principal); S00.83XA Contusion of other part of head, initial encounter; W18.30XA Fall on same level, unspecified, initial encounter; Y92.099 Unspecified place in other non-institutional residence as the place of occurrence of the external cause; Z79.01 Long term (current) use of anticoagulants; I48.91 Unspecified atrial fibrillation; Z95.2 Presence of prosthetic heart valve; F03.90 Unspecified dementia, unspecified severity, without behavioral disturbance, psychotic disturbance, mood disturbance, and anxiety; E11.9 Type 2 diabetes mellitus without complications; M50.31 Other cervical disc degeneration, high cervical region
CPT/HCPCS: 36415; 70450; 72125; 80053; 83690; 85025; 85610; 99284; 99285

== ENCOUNTER 2019-12-15 20:11 | Outpatient (CLI) | payer MEDICARE | END 2019-12-15 20:12 | disposition critical access hospital (66) | LOC: EMS 20:11 | PROVIDERS: ATTEND Surgery | DX: R46.89 Other symptoms and signs involving appearance and behavior (principal); S09.90XA Unspecified injury of head, initial encounter; W19.XXXA Unspecified fall, initial encounter; Y92.099 Unspecified place in other non-institutional residence as the place of occurrence of the external cause | CPT/HCPCS: A0425; A0429 ==

== ENCOUNTER 2019-12-15 20:29 | Emergency (ER) | payer MEDICARE ==
--- NOTE | 2019-12-15 21:25 | ED Physician Documentation ---
PD HPI ALTERED MENTAL STATUS - Stated complaint Stated Complaint: AMS - Chief complaint Chief Complaint: Neuro - History obtained from History obtained from: Caregiver - History of Present Illness Timing - onset: Today Quality / character: Memory Loss, Agitated, Combative Contributing factors: Anticoagulated Recently seen: Emergency Dept - Additional information Additional information: T+R from this ED earlier today after fall/head injury. Work up included CTH, CT cerivcal spine, and blood tests. Results were reassuring and patient was discharged from ED and taken back to [facility]. She is sent back to ED at this time for agitation, refusing to go into her room and refusing to take her scheduled medications. Review of Systems Unable to obtain: Dementia PD PAST MEDICAL HISTORY - Past Medical History Past Medical History: Yes Cardiovascular: High cholesterol, Coronary artery disease, Atrial fibrillation, Valve disorder Respiratory: None, Other Neuro: CVA Endocrine/Autoimmune: Type 2 diabetes GI: GERD : None HEENT: None Psych: None Musculoskeletal: None Derm: None - Past Surgical History Past Surgical History: Yes Cardiovascular: CABG, Coronary stent, Valve replacement, Cardiac catheterization, Vascular surgery HEENT: Cataracts - Present Medications Home Medications: Ambulatory Orders Medication Instructions Recorded Confirmed Donepezil HCl 10 mg PO QPM 11/26/19 11/27/19 Escitalopram Oxalate 20 mg PO DAILY 11/26/19 11/27/19 Pantoprazole Sodium 40 mg DAILY 11/26/19 11/26/19 QUEtiapine [SEROquel] 50 mg PO QPM 11/26/19 11/27/19 Warfarin Sodium 5 mg PO DAILY 11/26/19 11/27/19 Atorvastatin Calcium 20 mg PO QPM 11/27/19 11/27/19 Metoprolol Succinate 75 mg PO DAILY 11/27/19 11/27/19 buPROPion HCL [Bupropion HCl Sr] 150 mg PO Q12H 11/27/19 11/27/19 Potassium Chloride [Micro-K] 10 meq PO 0800 #15 capsule 11/28/19 Calcium Carbonate/Vitamin D3 1 each PO BID 12/15/19 12/15/19 [Calcium 500 mg-Vit D3 600 Unit] Ciprofloxacin [Cipro] 250 mg PO Q12H 12/15/19 12/15/19 Ferrous Gluconate 240 mg PO 12/15/19 Multivitamin [Multiple Vitamins] 1 each PO DAILY 12/15/19 12/15/19 clonazePAM [Clonazepam] 0.5 mg PO QPM PRN 12/15/19 12/15/19 - Allergies Allergies/Adverse Reactions: Allergies Allergy/AdvReac Type Severity Reaction Status Date / Time No Known Drug Allergies Allergy Verified 12/15/19 20:36 - Social History Does the pt smoke?: No Smoking Status: Never smoker Does the pt drink ETOH?: No Does the pt have substance abuse?: No - POLST Patient has POLST: Yes POLST Status: DNR PD ED PE NORMAL - Vitals Vital signs reviewed: Yes - General General: No acute distress, Well developed/nourished, Other (repeatedly calling out "help me". awake, alert, not cooperative with H+P) - HEENT HEENT: Moist mucous membranes, Other (faint echymosis let periorbit (lateral and infraorbital)) - Neck Neck: No bony TTP - Respiratory Respiratory: No respiratory distress, Clear bilaterally - Abdomen Abdomen: Soft, Non tender PD ED PE EXPANDED - Cardiac Cardiac: Irregularly irregular Results - Vitals Vitals: Vital Signs - 24 hr 12/16/19 06:01 Heart Rate 72 Respiratory 14 Rate Blood Pressure 140/62 H O2 Saturation 97 Oxygen O2 Source Room air - Labs Labs: Laboratory Tests 12/15/19 12/16/19 21:50 11:20 Urine Color YELLOW Urine Clarity CLEAR Urine pH 6.5 Ur Specific Pound 1.025 Urine Protein NEGATIVE Urine Glucose (UA) NEGATIVE Urine Ketones NEGATIVE Urine Occult Blood NEGATIVE Urine Nitrite NEGATIVE Urine Bilirubin NEGATIVE Urine Urobilinogen 0.2 (NORMAL) Ur Leukocyte Esterase NEGATIVE Ur Microscopic Review NOT INDICATED Urine Culture Comments NOT INDICATED Coronavirus (PCR) NEGATIVE PD MEDICAL DECISION MAKING - ED course Complexity details: reviewed old records, reviewed results, re-evaluated patient, considered differential ED course: Patient had just underwent substantial testing earlier in the day, and thus the only test I ordered was UA (results do not suggest infection or other acute/emergent process). A few hours into my shift, patient suddenly became very agitated and was trying to walk out of the emergency department. She was confused/disoriented, cursing at staff, and threw a walker across the hallway. She eventually was redirected back into her room but required IM zyprexa for continued agitation. This medication had the desired result and she slept for the remainder of my shift. Case signed out to oncoming ED physician pending SW evaluation
[2019-12-15 21:56] LABS: BILIRUBIN,URINE NEGATIVE (NEGATIVE); GLUCOSE, URINE (UA) NEGATIVE (NEGATIVE); KETONES,URINE (UA) NEGATIVE (NEGATIVE); LEUKOCYTE ESTERASE, URINE NEGATIVE (NEGATIVE); NITRITE,URINE NEGATIVE (NEGATIVE); OCCULT BLOOD,URINE NEGATIVE (NEGATIVE); PH,URINE 6.5 PH (5.0-7.5); PROTEIN,URINE NEGATIVE (NEGATIVE); UROBILINOGEN,URINE 0.2 (NORMAL) E.U./dL (NORMAL)
[2019-12-15 21:57] LABS: CLARITY,URINE CLEAR (CLEAR)
[2019-12-15] MEDS ORDERED: OLANZapine 10 MG VIAL IM STA (23:40)
--- NOTE | 2019-12-16 08:28 | CT Report ---
PROCEDURE: HEAD WO INDICATIONS: head injury yesterday, on Coumadin TECHNIQUE: Noncontrast 4.5 mm thick angled axial sections acquired from the foramen magnum to the vertex. For r adiation dose reduction, the following was used: automated exposure control, adjustment of mA and/or kV according to patient size. COMPARISON: Head CT examinations 12/15/2019, 11/26/2019, and 12/11/2017. Correlation is also made with brain MRI 12/12/2017. FINDINGS: Image quality: Excellent. CSF spaces: Basal cisterns are patent. No extra-axial fluid collections. Ventricles are normal in size and shape. Brain: No midline shift. No intracranial masses or hemorrhage. Bean-white matter interface is norm al. Skull and face: Calvarium and visualized facial bones are intact, without suspicious lesions. 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 Sinuses: Visualized sinuses and mastoids are clear. IMPRESSION: No interval development of intracranial hemorrhage can be seen. Age-appropriate brain parenchymal volume loss and chronic small vessel ischemic change can be seen. Reviewed by: James Phillips MD on 12/16/2019 7:27 AM MERRILL Approved by: James Phillips MD on 12/16/2019 7:27 AM MERRILL Station ID: [id number]
--- NOTE | 2019-12-16 11:42 | ED Physician Documentation ---
ED Addendum - Addendum Addendum: 12/16/19 11:40Social work talked with the patient. She has been calm and interacting this morning since change of shift. The social work states the patient and facility have been working to getting the patient had a higher level of dementia care, a facility in [place]. They may be able to take her Tuesday which is tomorrow provided they get orders written. No particular intervention needed at this time. We will make sure the patient continues on her usual medications though which seem to not have been ordered last night.
[2019-12-17] MEDS ORDERED: OLANZapine ODT 5 MG TABLET TL ONE (11:21)
[2019-12-17] MEDS ORDERED: OLANZapine 10 MG VIAL IM STA (11:45)
[2019-12-17] MEDS ORDERED: buPROPion SR 150 MG TABLET PO STA (12:22)
[2019-12-17] MEDS ORDERED: PANTOPRAZOLE 40 MG TABLET PO STA (12:22)
[2019-12-17] MEDS ORDERED: WARFARIN 5 MG TABLET PO STA (12:23)
[2019-12-17] MEDS ORDERED: ESCITALOPRAM 10 MG TABLET PO STA (12:24)
--- NOTE | 2019-12-17 12:26 | ED Physician Documentation ---
ED Addendum - Addendum Addendum: 12/17/19 12:25 The patient has been calm and cooperative for the most part. She did get a little anxious just before lunchtime but seemed calmer once food arrived. She had not been given any medications here in the ER for 2 days. I looked at her daily medication list from [facility] and put in for the medication she should be getting daily. She is also given a dose of Zyprexa to help with the calming right now. I heard from the social work that were just waiting on the primary care to write orders for the nursing facility to which she is going. Once that is done, her friend is arranged and ready to come and pick her up and bring her there.
[2019-12-17] MEDS: METOPROLOL SUCCINATE 25 MG TABLET PO SCH (12:58)
[2019-12-18] MEDS ORDERED: OLANZapine 10 MG VIAL IM STA ×2 (15:26→20:47)
[2019-12-18] MEDS: METOPROLOL SUCCINATE 25 MG TABLET PO SCH (15:28)
[2019-12-18] MEDS ORDERED: QUEtiapine 25 MG TABLET PO STA (19:55)
--- NOTE | 2019-12-18 20:48 | ED Physician Documentation ---
ED Addendum - Addendum Addendum: 12/18/19 20:47 She was mostly calm and walking around the department with assistance during my shift. Come 8 PM or so she started to get agitated. She was given 50 mg of Seroquel but was even getting more agitated and sundowning and this of IM Zyprexa. My understanding is that [facility].
[2019-12-19 08:56] VITALS: BP 104/75
== END 2019-12-19 08:56 | disposition home or self-care (01) ==
LOC: EDBD → EDUNIT# → ED 20:29
DX: F03.90 Unspecified dementia, unspecified severity, without behavioral disturbance, psychotic disturbance, mood disturbance, and anxiety (principal); F05 Delirium due to known physiological condition; R45.1 Restlessness and agitation; Z11.59 Encounter for screening for other viral diseases; S09.90XA Unspecified injury of head, initial encounter; S00.83XA Contusion of other part of head, initial encounter; W18.30XA Fall on same level, unspecified, initial encounter; Y92.099 Unspecified place in other non-institutional residence as the place of occurrence of the external cause; Z79.01 Long term (current) use of anticoagulants; I48.91 Unspecified atrial fibrillation; Z95.2 Presence of prosthetic heart valve; E11.9 Type 2 diabetes mellitus without complications; M50.31 Other cervical disc degeneration, high cervical region; Z66 Do not resuscitate
CPT/HCPCS: 36415; 70450; 72125; 80053; 81003; 83690; 85025; 85610; 96372; 99284; 99285; A9270; U0004; 81001; 81599; 87086